=== PATIENT | male | born 1970 | race Caucasian/White ===

== ENCOUNTER 2018-06-20 20:47 | Emergency (ER) | payer SELFPAY ==
[~2018-06-20] VITALS: Ht 180.3 cm; Wt 81.6 kg
[~2018-06-20 20:47] MED LIST: MEDROL DOSEPAK4 MG PO; METHADONE10 MG PO; NORFLEX100 MG PO; VALIUM2 MG PO
[2018-06-20 23:01] LABS: URINE AMPHETAMINES < 1000 (1000ng/ml); URINE BARBITURATES < 200 (200ng/ml); URINE BENZODIAZEPINES < 200 (200ng/ml); URINE CANNABINOIDS (THC) < 50 (50ng/ml); URINE COCAINE < 300 (300ng/ml); URINE METHADONE < 300 (300ng/ml); URINE OPIATES < 300 (300ng/ml)
[2018-06-20 23:05] LABS: URINE PHENCYCLIDINE < 25 (25ng/ml)
== END 2018-06-20 21:40 | disposition home or self-care (01) ==
LOC: ED 20:47
PROVIDERS: Student in an Organized Health Care Education/Training Program
DX: Z51.81 Encounter for therapeutic drug level monitoring (principal)

== ENCOUNTER 2019-05-31 07:01 | Emergency (ER) | payer BC ==
[~2019-05-31] VITALS: Ht 180.3 cm; Wt 81.6 kg
[2019-05-31 09:11] LABS: BASO % 0.3 % (0.0-1.0); EOS # 0.3 10*3/uL (0.0-0.4); EOS % 2.9 % (1.0-4.0); HEMATOCRIT 36.3 % (42.0-52.0); HEMOGLOBIN 11.6 g/dl (14.0-18.0); LYMPH # 1.7 10*3/uL (1.3-4.4); LYMPH % 18.1 % (27.0-41.0); MEAN CELL VOLUME 92.8 fl (80.0-94.0); MEAN CORPUSCULAR HGB 29.7 pg (27.0-31.0); MEAN PLATELET VOLUME 8.9 fl (9.6-12.3); MONO # 0.9 10*3/uL (0.1-1.0); MONO % 9.8 % (3.0-9.0); NEUT # 6.3 10*3/uL (2.3-7.9); NEUT % 68.7 % (47.0-73.0); PLATELET COUNT AUTOMATED 332 10*3/uL (130-400); RED BLOOD COUNT 3.91 10*6/uL (4.50-5.90); RED CELL DISTRI WIDTH 12.5 % (0-14.5); WHITE BLOOD COUNT 9.2 10*3/uL (4.8-10.8)
[2019-05-31 09:31] LABS: ALBUMIN 3.8 gm/dl (3.1-4.5); ALKALINE PHOSPHATASE 70 U/L (45-117); BUN 14 mg/dl (7-24); CHLORIDE 105 mmol/L (98-107); CREATININE 0.76 mg/dL (0.70-1.30); SGOT/AST 18 IU/L (3-35); SGPT/ALT 25 U/L (12-78); SODIUM 139 mmol/L (136-145); TOTAL PROTEIN 6.9 gm/dL (6.4-8.2)
[2019-05-31 09:36] LABS: POTASSIUM 4.1 mmol/L (3.5-5.1)
[2019-05-31] MEDS ORDERED: CLEOCIN HCL300 MG PO (13:11)
[2019-05-31] MEDS ORDERED: Motrin,Rufen800 MG PO (13:11)
== END 2019-05-31 13:22 | disposition home or self-care (01) ==
LOC: ED 07:01
PROVIDERS: Internal Medicine
DX: K04.7 Periapical abscess without sinus (principal); Z79.899 Other long term (current) drug therapy

== ENCOUNTER 2020-05-23 09:50 | Emergency (ER) | payer SELFPAY ==
[~2020-05-23] VITALS: Wt 81.6 kg
[~2020-05-23 09:50] MED LIST changes: +CLEOCIN HCL300 MG PO; +Motrin,Rufen800 MG PO
[2020-05-23] MEDS ORDERED: PENICILLIN VK500 MG PO (10:05)
[2020-05-23] MEDS ORDERED: IBU800 MG PO (10:05)
== END 2020-05-23 10:30 | disposition home or self-care (01) ==
LOC: ED 09:50
DX: K04.7 Periapical abscess without sinus (principal); Z79.2 Long term (current) use of antibiotics; Z79.899 Other long term (current) drug therapy